=== PATIENT | male | born 1950 | race Caucasian/White ===

== ENCOUNTER → 2017-12-19 | Outpatient (CLI) | payer MEDICARE, OTHER ==
[~2017-12-19] MED LIST: ASPI-496 PO; CHOL100012 PO; LOSA50TA6 PO; METF500T4 PO; MULT-717 PO
[2017-12-19 10:56] LABS: ALANINE AMINOTRANSFERASE 31 U/L (12-78); ALBUMIN 3.8 g/dL (3.4-5.0); ANION GAP 9 mmol/L (5-15); CALCIUM 9.1 mg/dL (8.5-10.1); CHLORIDE 103 mmol/L (98-107); CREATININE 0.95 mg/dL (0.7-1.3)
[2017-12-19 10:58] LABS: ALKALINE PHOSPHATASE 90 U/L (45-117); BILIRUBIN,TOTAL 0.4 mg/dL (0.2-1.0); TOTAL PROTEIN 7.7 g/dL (6.4-8.2)
== END | disposition home or self-care (01) ==
LOC: STAR 09:32
PROVIDERS: ATTEND Surgery
DX: Z01.818 Encounter for other preprocedural examination (principal); I45.10 Unspecified right bundle-branch block
CPT/HCPCS: 36415; 80053; 93005

== ENCOUNTER 2017-12-29 06:19 | Inpatient (IN) | payer MEDICARE, OTHER ==
[2017-12-19 09:58] VITALS: BP 148/84
[~2017-12-29] VITALS: Ht 177.8 cm; Wt 114.6 kg
[2017-12-29] MEDS ORDERED: LACTATED RINGERS 1,000 ML IV SCH (06:48)
[2017-12-29] MEDS ORDERED: LIDOCAINE-MPF 1%, 2ML INFIL ONE (07:00)
[2017-12-29] MEDS ORDERED: BUPIVACAINE/PF-EPI 0.5% 1:200K ONE (07:43)
[2017-12-29] MEDS ORDERED: MIDAZOLAM 1 MG/ML, 2ML ONE (07:52)
[2017-12-29] MEDS ORDERED: FENTANYL PF 250 MCG/5ML ONE ×2 (07:56→09:39)
[2017-12-29] MEDS ORDERED: ONDANSETRON 2MG/ML, 2ML ONE (07:58)
[2017-12-29] MEDS ORDERED: ROCURONIUM 10 MG/ML,10ML ONE (07:58)
[2017-12-29] MEDS ORDERED: PHENYLEPHRINE 10 MG/ML ONE (07:58)
[2017-12-29] MEDS ORDERED: CEFAZOLIN 1,000 MG ONE (07:58)
[2017-12-29] MEDS ORDERED: PROPOFOL 10 MG/ML, 50ML ONE (07:58)
[2017-12-29] MEDS ORDERED: EPHEDRINE 50 MG/ML, 1ML ONE (07:58)
[2017-12-29] MEDS ORDERED: SUCCINYLCHOLINE 20 MG/ML, 10ML ONE (07:58)
[2017-12-29] MEDS ORDERED: DEXAMETHASONE 4 MG/ML, 1ML ONE (07:58)
[2017-12-29] MEDS ORDERED: LORazepam 2 MG/ML, 1ML IVPush PRN (09:30)
[2017-12-29] MEDS ORDERED: OXYcodone 5 MG/5 ML ORAL.SOL UDC PO PRN (09:30)
[2017-12-29] MEDS ORDERED: hydrALAzine 20 MG/ML, 1ML IV PRN ×2 (09:30→13:30)
[2017-12-29] MEDS ORDERED: MORPHINE SULFATE 4 MG/ML, 1ML IVPush PRN (09:30)
[2017-12-29] MEDS ORDERED: MEPERIDINE/PF 25MG/0.5ML IVPush PRN (09:30)
[2017-12-29] MEDS ORDERED: METOPROLOL 1 MG/ML, 5ML IV PRN (09:30)
[2017-12-29] MEDS ORDERED: PROMETHAZINE 12.5 MG SUPP PR PRN (09:30)
[2017-12-29] MEDS ORDERED: ACETAMINOPHEN 325 MG TABLET PO PRN ×2 (09:30→13:30)
[2017-12-29] MEDS ORDERED: HYDROmorphone 1 MG/ML, 1ML IV PRN (09:30)
[2017-12-29] MEDS ORDERED: ALBUTEROL SULFATE 2.5 MG/3 ML NPPB PRN (09:30)
[2017-12-29] MEDS ORDERED: PROMETHAZINE 25 MG/ML, 1ML IV PRN (09:30)
[2017-12-29] MEDS ORDERED: FENTANYL PF 100 MCG/2ML IV PRN (09:30)
[2017-12-29] MEDS ORDERED: PROMETHAZINE 25 MG SUPP PR PRN (09:30)
[2017-12-29] MEDS ORDERED: ACETAMINOPHEN 650 MG/20.3 ML UDC ONE (12:39)
[2017-12-29] MEDS ORDERED: OXYcodone 5 MG/5 ML ORAL.SOL UDC ONE (12:40)
[2017-12-29 13:08] VITALS: BP 122/75
[2017-12-29] MEDS ORDERED: ACETAMINOPHEN 650 MG SUPP PR PRN (13:30)
[2017-12-29] MEDS ORDERED: HYDROcodone/APAP 5/325 TABLET PO PRN (13:30)
[2017-12-29] MEDS ORDERED: ONDANSETRON 2MG/ML, 2ML IV PRN (13:30)
[2017-12-29] MEDS: INSULIN REGULAR, HUMAN 100 UNITS/ML, 3ML MEDIUM DOSE SS SQ-INSULIN SCH ×2 (17:12→20:50)
[2017-12-29 19:03] VITALS: BP 118/61
[2017-12-29] MEDS ORDERED: SODIUM CHLORIDE FLUSH 10ML SYR IVF SCH (21:00)
[2017-12-30 00:03] VITALS: BP 118/62
[2017-12-30 04:28] VITALS: BP 117/69
[2017-12-30] MEDS: INSULIN REGULAR, HUMAN 100 UNITS/ML, 3ML MEDIUM DOSE SS SQ-INSULIN SCH (07:06)
[2017-12-30 07:40] VITALS: BP 118/65
[2017-12-30] MEDS ORDERED: HYDR-3240 PO (08:47)
[2017-12-30] MEDS ORDERED: metFORMIN 500 MG TABLET PO SCH (09:00)
[2017-12-30] MEDS ORDERED: LOSARTAN 50MG TABLET PO SCH (09:00)
[2017-12-30] MEDS ORDERED: CHOLECALCIFEROL 1,000 UNIT TABLET PO SCH (09:00)
== END 2017-12-30 09:08 | disposition home or self-care (01) | DRG 626 ==
LOC: OUT 06:19 → 4NOR 13:00 → OUT 13:31 → DCLOUNGE 12-30 09:01
PROVIDERS: ADMIT Surgery; ATTEND Surgery
PROC: 4A11X4G Monitoring of Peripheral Nervous Electrical Activity, Intraoperative, External Approach (ICD-10-PCS; 2017-12-29)
PROC: 0GTH0ZZ Resection of Right Thyroid Gland Lobe, Open Approach (ICD-10-PCS; principal; 2017-12-29 07:45)
DX: E04.1 Nontoxic single thyroid nodule (principal); E44.1 Mild protein-calorie malnutrition; J39.8 Other specified diseases of upper respiratory tract; E11.9 Type 2 diabetes mellitus without complications; Z90.89 Acquired absence of other organs; Z82.49 Family history of ischemic heart disease and other diseases of the circulatory system; Z83.3 Family history of diabetes mellitus; Z80.9 Family history of malignant neoplasm, unspecified
CPT/HCPCS: 82962; 88305; 88307; C1729; J0690; J1100; J1815; J2250; J2405; J2704; J3010; J3490; J0330; J2370; J7120